=== PATIENT | male | born 1965 ===

== ENCOUNTER 2025-07-25 16:27 | Emergency (ER) | payer OTHER, SELFPAY ==
[2025-07-25 16:34] VITALS: BP 125/75; BMI 21.5
[2025-07-25 17:00] VITALS: BP 117/74
--- NOTE | 2025-07-25 17:00 | ED.GENMED ---
History of Present Illness
General
Chief Complaint: Chest Pain
Time Seen by Provider: 07/25/25 16:59
Nursing documentation reviewed up to this point in time: agreed with
History of Present Illness
History of Present Illness:
60-year-old male presents to the ER for evaluation of chest pain which he describes as sharp in his left lower chest. It has been occurring intermittently throughout the day today, it is not provoked with activity. He denies feeling short of
breath. He denies any prior personal history of ACS but states that he had a valve infection and had been on a medication for many years which he is no longer on. He cannot recall the name of this medication. He states that he has been having
swelling to his bilateral lower extremities over the last several weeks of unclear etiology. He denies feeling short of breath. He has been eating and drinking without any difficulty. He is currently incarcerated. He states that he was given
compression socks to wear but has not had any significant change in his lower extremity edema.
Review of Systems
Review of Systems
Allergies reviewed?: Yes
Phy Exam
Physical Exam
Physical Exam:
Patient is awake, alert, appears in no acute distress, head is NCAT, PERRL, EOMI mucous membranes moist, conjunctiva pink, heart regular rate and rhythm without murmurs or ectopy, lungs are clear to auscultation without wheezes rales or rhonchi, no
JVD, abdomen is soft and nontender on palpation, extremities with 2+ edema symmetric bilateral legs, GCS is 15
Scores
Heart Score for Chest Pain Patients
STEMI patient?: No
History: Slightly or Non-Suspicious
ECG: Normal
Age: >45 - <65 years
Risk Factors: >/= 3 Risk Factors or History of CAD
Troponin: </= Normal Limit
Heart Score for Chest Pain Patients: 3
Heart Score Risk: 2.5% MACE over next 6 weeks
Course
Orders/Labs/Results
Orders:
Orders
07/25/25 16:33
Electrocardiogram (*1) Urgent
Reason for Study: Chest Pain
EKG- Treatment ONCE
CXR2 [CR Chest - 2 Views ] Urgent
Comment:
Reason For Exam: chest pain
07/25/25 16:44
Complete Blood Count/With Diff Urgent
Comprehensive Metabolic Panel Urgent
Magnesium Urgent
Troponin I Urgent
07/25/25 17:52
D-Dimer Urgent
NT-proBNP Urgent
07/25/25 18:27
CT Chest PE Study Urgent
Comment:
Reason For Exam: chest pain
Venous Doppler Lwr Ext Bilat [US Periph Venous LOWER Ext Ike] Urgent
Comment: + ddimer
Reason For Exam: edema
Abnormal Lab Results
07/25/25 07/25/25
16:44 17:52
RBC 3.24 L 10^6/uL
(4.70-6.10)
Hgb 8.7 L g/dL
(13.0-18.0)
Hct 27.0 L %
(39.0-52.0)
MCH 26.9 L pg
(27.0-31.0)
MCHC 32.2 L g/dL
(33.0-37.0)
RDW 16.7 H %
(11.5-14.5)
Absolute Monos (auto) 1.0 H 10^3/uL
(0.1-0.6)
Neutrophils % 40.4 L %
(42.2-75.2)
Monocytes % 17.0 H %
(1.7-9.3)
D-Dimer 0.85 H ug/mlFEU
(0.00-0.50)
Total Bilirubin 0.1 L mg/dl
(0.2-1.3)
07/25/25 16:44
07/25/25 16:44
Vital Signs
Initial and Last Documented VS:
Initial Vital Signs
Pulse Resp Pulse Ox
81 16 100
07/25/25 16:33 07/25/25 16:33 07/25/25 16:33
Last Documented Vital Signs
Temp Pulse Resp BP Pulse Ox
98.6 F 64 8 131/86 100
07/25/25 19:02 07/25/25 20:15 07/25/25 20:15 07/25/25 19:02 07/25/25 20:15
MDM/Problems Addressed
Differential Diagnosis Includes:
Differential diagnosis to consider but not limited to ACS, PE, CHF along with other etiologies considered
Chronic conditions affecting care:
Incarceration, prior cardiac valve infection
*Radiology
Radiology exam reviewed: preliminary read by ED provider (I independently viewed interpreted two-view chest showing no acute process, normal cardiac silhouette-I reviewed radiology interpretation which is in agreement) and radiology read reviewed
(Bilateral lower extremity ultrasounds within normal limits. CT chest: No PE, bilateral atelectasis, moderate emphysematous disease, CAD, adrenal gland nodularity, degenerative change of spine and shoulder)
*Pulse Oximetry
SaO2: 100
Oxygen Mode of Delivery: Room air
Patient hypoxic: no
*EKG
Interpreted by ED Provider?: Yes (I independently viewed and interpreted twelve-lead EKG showing normal sinus rhythm, rate 74, normal axis, incomplete right bundle branch block, no ST elevation, this is a normal variant without evidence for acute
ischemia, no prior for comparison)
*Spanner Operator Interpretation
Rate: normal (I independently viewed and interpreted rhythm strip showing normal sinus rhythm with incomplete right bundle branch block)
*Critical Care Note
Total Time (30-74mins, 75-104mins- exclusive of procedures): Not Applicable
Update Note
Update Note:
Patient without any symptoms at the current time. Will check screening labs including D-dimer given uncertain duration of bilateral lower extremity edema and now chest pain. Patient has no prior personal history of venous thromboembolism. Will
try to obtain med history and med list from the snf. Awaiting results.
1828: D-dimer is elevated, ultrasound bilateral lower extremities along CT chest is added. Initial troponin is very reassuring
2149: Once CT result available, I reviewed all information with patient. I discussed with him very reassuring workup here, no indication for ACS today. I discussed with him need to follow-up with primary care physician for reevaluation and further
care. I discussed with him continued use of Lasix as prescribed for his peripheral edema, no evidence for pulmonary embolism. Patient feels comfortable with plan. He was given a turkey box and had no questions at the current time.
ED Attending Note
-
Portions of this chart may have been created with voice recognition software.� Occasional wrong word or��sound alike� substitutions may have occurred due to the inherent limitations of voice recognition software.
Discharge Plan
Departure
Patient Disposition: Home (Routine Discharge)
Date of Disposition: 07/25/25
Time of Disposition: 21:57
Patient with high blood pressure during this ER visit?: No
Discharge Problem:
Chest pain
Instructions: Chest Pain CBC Follow Up
Prescriptions:
No Action
levetiracetam [Keppra] 500 mg Tablet
500 mg PO BID
multivitamin [Daily-Alejandra] Tablet
1 tab PO DAILY
acetaminophen 500 mg Tablet
500 mg PO 2XD PRN (Reason: pain)
lisinopril 10 mg Tablet
10 mg PO DAILY
furosemide 20 mg Tablet
20 mg PO DAILY
buprenorphine HCl 8 mg Tablet, Sublingual
8 mg SUBLINGUAL DAILY
Referrals:
UNKNOWN - PT NOT,INTERVIEWE [Family Provider]
Activity Restrictions/Additional Instructions:
Continue your current medications. Please follow-up with cardiology for reevaluation and further care. Please follow-up with your primary care physician also for recheck of all your test results today. Return to the ER for any concerns
Interventions
Interventions:
*General Assessment Last Done: 07/25/25 16:34
*Neglect/Abuse Screening Last Done: 07/25/25 16:34
*ED COVID-19 Vaccine History Last Done: 07/25/25 16:34
*ED Influenza Vaccine History Last Done: 07/25/25 16:34
[facility] Fall Risk Assessment Tool Last Done: 07/25/25 16:34
*Risk Screen - Suicide (C-SSRS) Last Done: 07/25/25 16:34
ED- Cardiac Assessment Last Done: 07/25/25 16:34
Discharge Date and Time
Print Language: ANGOLAN
[2025-07-25 17:03] LABS: Hematocrit 27.0 % (39.0-52.0); Hemoglobin 8.7 g/dL (13.0-18.0); Mean Corp Hgb Conc. 32.2 g/dL (33.0-37.0); Mean Corpuscular Volume 83.3 fL (80.0-94.0); Nucleated Red Blood Cells % 0 % (-); Platelet Count 302 10^3/uL (130-400); Red Cell Dist. Width 16.7 % (11.5-14.5)
[2025-07-25 17:24] LABS: Troponin I < 0.012 ng/ml
[2025-07-25 17:28] LABS: ALT (SGPT) 15 U/L (0-50); AST (SGOT) 27 U/L (17-59); Albumin 4.0 g/dl (3.5-5.0); Alkaline Phosphatase 66 U/L (38-126); Blood Urea Nitrogen 18 mg/dl (9-20); Calcium 9.2 mg/dl (8.4-10.2); Carbon Dioxide 28 mmol/L (22-30); Chloride 102 mmol/L (98-107); Estimated Creatinine Clearance 85 ml/min; Glucose 83 mg/dl (70-99); Magnesium 1.9 mg/dl (1.6-2.3); Potassium 4.4 mmol/L (3.5-5.1); Sodium 137 mmol/L (135-145); Total Protein 6.5 g/dl (6.3-8.2); eGFR > 60.00
[2025-07-25 17:38] VITALS: BP 149/89
[2025-07-25 18:00] VITALS: BP 131/81
[2025-07-25 18:18] LABS: D-Dimer 0.85 ug/mlFEU (0.00-0.50)
[2025-07-25 18:43] VITALS: BP 140/88
[2025-07-25 19:02] VITALS: BP 131/86
== END 2025-07-25 23:08 | disposition home or self-care (01) ==
LOC: EMR 16:27
PROVIDERS: EMERGENCY PHYSICIAN Emergency Medicine
DX: R07.9 Chest pain, unspecified (principal); R22.43 Localized swelling, mass and lump, lower limb, bilateral; I45.10 Unspecified right bundle-branch block
CPT/HCPCS: 99285; 71046; 71275; 80053; 83735; 83880; 84484; 85025; 85379; 93005; 93970; Q9967